=== PATIENT | female | born 1955 | race Hispanic/Latino ===

== ENCOUNTER 2017-11-04 19:02 | Emergency (ER) | payer MEDICARE ==
[2017-11-04] MEDS ORDERED: TYLENOL PO ONE (19:33)
[2017-11-04] MEDS ORDERED: TYLENOL ONE (19:33)
[2017-11-04] MEDS ORDERED: MOTRIN PO ONE (19:46)
[2017-11-04] MEDS ORDERED: MOTRIN ONE (21:56)
[2017-11-04 23:10] VITALS: BP 164/117
--- NOTE | 2017-11-04 23:41 | Emergency Department Report ---
ED Psych HPI - General Chief Complaint: Extremity Injury, Lower Stated Complaint: FOOT PAIN Time Seen by Provider: 11/04/17 19:46 Source: patient Mode of arrival: Ambulatory - History of Present Illness Initial Comments: Says that both of her feet have been hurting her for months. It feels like pins and needles in both her feet. She used to be on gabapentin, but her doctor stopped writing it for her. She is also requesting to see his psychiatrist. She is not on any of her psychiatric medication and hasn't had them for months. Denies SI, HI, visual hallucinations. Patient says sometimes she hears things. Currently she is living in a homeless [facility]. Says that she 's been feeling very anxious and has not slept in a long time. - Related Data Allergies Allergy/AdvReac Type Severity Reaction Status Date / Time No Known Allergies Allergy Unverified 11/04/17 19:33 ED Review of Systems ROS: Stated complaint: FOOT PAIN Other details as noted in HPI Comment: All other systems reviewed and negative Musculoskeletal: myalgia Neurological: paresthesias Psychiatric: anxiety, auditory hallucinations ED Past Medical Hx - Past Medical History Previous Medical History?: Yes Hx Hypertension: Yes Hx Psychiatric Treatment: Yes (manic depressive, personality disorder, schizophrenic) - Surgical History Past Surgical History?: No - Social History Smoking Status: Current Every Day Smoker Substance Use Type: None ED Physical Exam - General Limitations: No Limitations General appearance: alert, in no apparent distress, anxious - Head Head exam: Present: atraumatic, normocephalic - Eye Eye exam: Present: normal appearance - ENT ENT exam: Present: mucous membranes moist - Respiratory Respiratory exam: Present: normal lung sounds bilaterally. Absent: respiratory distress - Cardiovascular Cardiovascular Exam: Present: regular rate, normal rhythm. Absent: systolic murmur, diastolic murmur, rubs, gallop - GI/Abdominal GI/Abdominal exam: Present: soft, normal bowel sounds - Extremities Exam Extremities exam: Present: normal inspection, other (bilateral feet unremarkable ) - Neurological Exam Neurological exam: Present: alert, oriented X3 - Psychiatric Psychiatric exam: Present: anxious, other (flight of ideas) - Skin Skin exam: Present: warm, dry, intact ED Course Vital Signs 11/04/17 11/04/17 11/04/17 19:23 20:02 22:00 Temperature 97.7 F 98.6 F Pulse Rate 92 H 97 H Respiratory 18 16 18 Rate Blood Pressure 158/93 Blood Pressure 164/117 [Right] O2 Sat by Pulse 96 100 Oximetry ED Medical Decision Making - Medical Decision Making 62-year-old female with supple reported history of manic-depression, schizophrenia presents to the ER with anxiety and bilateral foot pain. Her foot pain and sounds neuropathic in nature. Patient has been on gabapentin in the past. I will give her dose in the ER today. Patient also states she's been feeling very anxious and hasn't slept at all. Patient appears to be anxious and very flighty with her ideas/thoughts. Denies SI, HI, VH. No indication for emergent psychiatric hold at this time. Patient states wants to be seen by a psychiatrist. I have ordered labs for medical clearance. If they are negative, she will be medically cleared and disposition will be per psychiatry's recommendation. - Differential Diagnosis malingering, schizophrenia, psychosis, anxiety, intoxication Critical care attestation.: If time is entered above; I have spent that time in minutes in the direct care of this critically ill patient, excluding procedure time. ED Disposition Clinical Impression: Neuropathy, Anxiety Disposition: Z- MED SCREENING EXAM-CONT Is pt being admited?: No Condition: Stable Referrals: PRIMARY CARE, [Primary Care Provider] - 3-5 Days
[2017-11-05 00:18] LABS: Hematocrit 41.8 % (30.3-42.9); Hemoglobin 13.8 gm/dl (10.1-14.3); Mean Corpuscular HGB Conc 33 % (30-34); Mean Corpuscular Hemoglobin 31 pg (28-32); Mean Corpuscular Volume 95 fl (79-97); Platelet Count 265 K/mm3 (140-440); Red Blood Count 4.39 M/mm3 (3.65-5.03); Red Cell Distribution Width 14.8 % (13.2-15.2)
[2017-11-05 00:41] LABS: Alanine Aminotransferase 7 units/L (7-56); Albumin 4.1 g/dL (3.9-5); BUN/Creatinine Ratio 22; Blood Urea Nitrogen 20 mg/dL (7-17); Calcium 9.5 mg/dL (8.4-10.2); Hemolysis Index 2
[2017-11-05 02:47] LABS: Band Neutrophils # (Manual) 0.2 K/mm3; Basophils % (Manual) 0 % (0.0-1.8); RBC Morphology Normal; Total Cells Counted 100
[2017-11-05 02:48] LABS: Large Platelets Rare
== END 2017-11-05 03:05 | disposition home or self-care (01) ==
LOC: ED 19:02
DX: F41.9 Anxiety disorder, unspecified (principal); G62.9 Polyneuropathy, unspecified; I10 Essential (primary) hypertension; F17.200 Nicotine dependence, unspecified, uncomplicated
CPT/HCPCS: 36415; 80053; 85007; 85025; 99284; G0480; 80320

== ENCOUNTER 2020-06-01 10:39 | Emergency (ER) | payer MEDICARE ==
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
[2020-06-01 11:45] LABS: Bacteria,Urine 1+ /HPF (Negative); Bilirubin,Urine NEG (Negative); Blood,Urine NEG (Negative); Color,Urine Yellow (Yellow); Mucus,Urine FEW /HPF; Urobilinogen,Urine < 2.0 mg/dL (<2.0)
[2020-06-01 11:46] LABS: Amphetamine Screen,Urine Negative; Cannabinoid Screen,Urine Negative; Cocaine Screen,Urine Negative; Methadone Screen,Urine Negative; Opiate Screen,Urine Negative
[2020-06-01 11:51] LABS: Hematocrit 42.4 % (30.3-42.9); Hemoglobin 14.9 gm/dl (10.1-14.3); Mean Corpuscular HGB Conc 35 % (30-34); Mean Corpuscular Volume 97 fl (79-97); Platelet Count 243 K/mm3 (140-440); Red Blood Count 4.36 M/mm3 (3.65-5.03); Red Cell Distribution Width 14.6 % (13.2-15.2)
[2020-06-01 11:55] LABS: BUN/Creatinine Ratio 26; Blood Urea Nitrogen 21 mg/dL (7-17); Calcium 9.7 mg/dL (8.4-10.2); Hemolysis Index 14
[2020-06-01 11:57] LABS: Alanine Aminotransferase 10 units/L (7-56); Albumin 3.4 g/dL (3.9-5)
[2020-06-01 11:58] LABS: Bilirubin,Direct < 0.2 mg/dL (0-0.2)
[2020-06-01 12:07] LABS: Benzodiazepines Screen,Urine PRESUMPTIVE POSITIVE
[2020-06-01] MEDS ORDERED: MAGNESIUM HYDROXIDE (MOM) ORAL LIQD UDC PO PRN (12:20)
[2020-06-01] MEDS ORDERED: ACETAMINOPHEN 325 MG TAB PO PRN (12:20)
[2020-06-01] MEDS ORDERED: ALUM-MAG HYDROXIDE-SIMETHICONE 200-200-20MG/5ML ORAL LIQD 30 ML PO PRN (12:20)
[2020-06-01] MEDS ORDERED: LORazepam 1 MG TAB PO ONE (13:53)
[2020-06-01 14:12] LABS: Band Neutrophils # (Manual) 0.1 K/mm3; Basophils % (Manual) 0 % (0.0-1.8); Platelet Estimate Consistent w Auto; RBC Morphology Normal; Total Cells Counted 100
[2020-06-01] MEDS: dilTIAZem CD 120 MG CAP PO SCH (14:48)
[2020-06-01] MEDS: GABAPENTIN 100 MG CAP PO SCH ×2 (14:50→20:24)
[2020-06-01] MEDS: LORazepam 1 MG TAB PO SCH (22:23)
[2020-06-01] MEDS: DIVALPROEX ER 500 MG TAB PO SCH (22:23)
[2020-06-02] MEDS: GABAPENTIN 100 MG CAP PO SCH ×2 (07:54→14:30)
[2020-06-02] MEDS: DIVALPROEX ER 500 MG TAB PO SCH (10:10)
[2020-06-02] MEDS: dilTIAZem CD 120 MG CAP PO SCH (10:10)
[2020-06-02] MEDS: LORazepam 1 MG TAB PO SCH (10:11)
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
[2020-06-02 14:21] VITALS: BP 137/80
[2020-06-03] MEDS ORDERED: LORazepam 1 MG TAB PO SCH (10:00)
== END 2020-06-02 15:53 ==
LOC: ED 10:39 → EEVIPCON 10:39 → ED 06-02 15:53
DX: N39.0 Urinary tract infection, site not specified (principal); Z20.828 Contact with and (suspected) exposure to other viral communicable diseases; F31.9 Bipolar disorder, unspecified; E86.0 Dehydration; I10 Essential (primary) hypertension; Z02.79 Encounter for issue of other medical certificate; Z87.891 Personal history of nicotine dependence; Z79.899 Other long term (current) drug therapy
CPT/HCPCS: 36415; 80048; 80076; 80164; 80307; 81001; 83735; 85007; 85025; 87086; 99285; A9270; U0003; 80320; G0480